=== PATIENT | male | born 1950 | race Hispanic/Latino ===

== ENCOUNTER 2017-11-02 20:40 | Emergency (ER) | payer OTHER ==
[~2017-11-02] VITALS: Ht 170.2 cm; Wt 90.7 kg
--- NOTE | 2017-11-02 21:57 | ULTRASOUND REPORT ---
EXAMINATION: US TRIPLEX LOWER EXTREMITY, LEFT CLINICAL INFORMATION: Left leg pain and swelling. History of a left leg deep venous thrombosis. COMPARISON: None TECHNIQUE: Color-flow triplex imaging with spectral analysis and compression Doppler were performed on the lower extremity. FINDINGS: There is partially occlusive thrombus extending from the mid aspect of the superficial femoral vein to the popliteal vein. Some flow is visualized within the calf veins. There is no Johnson's cyst. IMPRESSION: Positive study with partially occlusive thrombus within the mid aspect of the superficial femoral vein extending to the popliteal vein. This is of uncertain chronicity as the patient reportedly had a left leg DVT 1 year ago. No prior studies available for comparison.
--- NOTE | 2017-11-02 22:05 | ED UPPER/LOWER EXTREMITY COMPL ---
History of Present Illness General Chief Complaint: Lower Extremity Problems Stated Complaint: L LEG SWELLING HX OF CLOT Source: patient, family Exam Limitations: no limitations Vital Signs & Intake/Output Vital Signs & Intake/Output Vital Signs Date Time Temp Pulse Resp B/P B/P Pulse O2 O2 Flow FiO2 Mean Ox Delivery Rate 11/02 2105 98.3 89 18 117/67 96 Room Air Allergies Coded Allergies: No Known Allergies (11/02/17) Reconcile Medications Apixaban (Eliquis) 5 MG TABLET 1 TAB PO BID dvt take 2 tabs twice a day for 7 days, then 1 tab twice a day Triage Note: RECEIVED 67 YO MALE DX WITH L LEG DVT 2016 IN [place]. PT WAS INITIALLY ON BLOOD THINNERS BUT STOPPED AFTER HURRICAINE. PT HAD NOT BEEN ON BLOOD THINNERS X 2 MONTHS. FAMILY REPORTS WORSENINNG SWELLING TO LEFT LOWER LEG AND DISCOLORATION TO LEFT ANKLE AREA. Triage Nurses Notes Reviewed? yes Onset: Gradual Duration: week(s): Timing: recent history Severity: moderate Pain/Injury Location: Left: Leg. HPI: 67yo male with hx of previous DVT presents to ED complaining of worsening swelling and pain to left lower leg for the past several weeks. Patient has recently moved to the from [place]. He was diagnosed with a left leg DVT December 2016. Patient was formerly taking blood thinners however he discontinue this medication 2 months ago as he did not have access to the medication. Patient saw a new primary care doctor here in the for the first time and was referred here for evaluation of possible DVT. Patient reports intermittent shortness of breath, worse with exertion. Patient denies chest pain, syncope, hemoptysis, abdominal pain, fevers. (Linda Silva) Past History Travel History Traveled to [place] past 21 day No Medical History Any Pertinent Medical History? see below for history Neurological: NONE EENT: NONE Cardiovascular: NONE Respiratory: NONE Gastrointestinal: NONE Hepatic: NONE Renal: NONE Musculoskeletal: L LEG DVT Psychiatric: NONE Endocrine: NONE Blood Disorders: NONE Cancer(s): NONE Surgical History Surgical History: non-contributory Psychosocial History What is your primary language Moldovan Tobacco Use: Never used Family History Hx Contributory? No (Linda Silva) Review of Systems Review of Systems Constitutional: Reports: no symptoms. EENTM: Reports: no symptoms. Respiratory: Reports: see HPI. Cardiovascular: Reports: see HPI. Gastrointestinal/Abdominal: Reports: no symptoms. Genitourinary: Reports: no symptoms. Musculoskeletal: Reports: see HPI. Skin: Reports: no symptoms. Neurological/Psychological: Reports: no symptoms. Hematologic/Endocrine: Reports: no symptoms. Immunological: Reports: no symptoms. All Other Systems: Reviewed and Negative (Peggy JENNINGS,Linda Juarez) Physical Exam Physical Exam General Appearance: well developed/nourished, no apparent distress, alert, awake Head: atraumatic, normal appearance Eyes: Bilateral: normal appearance. Ears, Nose, Throat: hearing grossly normal Neck: normal inspection, supple, full range of motion Cardiovascular/Respiratory: normal breath sounds, normal peripheral pulses, regular rate/rhythm, no respiratory distress Peripheral Pulses: 2+ dorsalis pedis (R), 2+ dorsalis pedis (L) Back: normal inspection, normal range of motion Leg Left: normal range of motion, 2+ pitting edema, nontender Leg Right: normal range of motion, normal inspection Hip Left: normal range of motion, normal inspection Hip Right: normal range of motion, normal inspection Knee Left: normal range of motion, normal inspection Knee Right: normal range of motion, normal inspection Foot Left: normal inspection, normal range of motion Foot Right: normal inspection, normal range of motion Neurologic/Tendon: normal sensation, normal motor functions, normal tendon functions Skin: intact, normal color, warm/dry (Peggy JENNINGS,Linda Juarez) Progress Differential Diagnosis: cellulitis, CHF, DVT, dependent edema Plan of Care: Orders Procedure Date/time Status PARTIAL THROMBOPLASTIN TIME 11/02 2144 Complete PROTHROMBIN TIME 11/02 2144 Complete COMPREHENSIVE METABOLIC PANEL 11/02 2144 Complete CBC WITHOUT DIFFERENTIAL 11/02 2144 Complete Current Medications Sig/George Start time Last Medication Dose Stop Time Status Admin Apixaban 10 MG ONCE ONE 11/02 2344 UNVr (Eliquis) 11/02 2345 Laboratory Tests 11/02/17 2210: Anion Gap 11, Estimated GFR > 60, BUN/Creatinine Ratio 15.0, Glucose 95, Calcium 9.5, Total Bilirubin 0.6, AST 21, ALT 24, Alkaline Phosphatase 73, Total Protein 6.5, Albumin 4.0, Globulin 2.5, Albumin/Globulin Ratio 1.6, PT 11.7, INR 1.07, APTT 28, CBC w Diff NO MAN DIFF REQ, RBC 4.14 L, MCV 96.4 H, MCH 32.3 H, MCHC 33.6, RDW 14.2, MPV 10.2, Gran % 39.0 L, Lymphocytes % 43.4, Monocytes % 12.9 H, Eosinophils % 4.0, Basophils % 0.7, Absolute Granulocytes 2.8, Absolute Lymphocytes 3.2, Absolute Monocytes 0.9 H, Absolute Eosinophils 0.3, Absolute Basophils 0.1 Ultrasound shows DVT, unknown if this is acute or related to patient's previous DVT, no old records to compare this to. CTA rules out pulmonary embolism. Patient's labs are stable. Patient's symptoms have been present for weeks. Patient started on Eliquis here in the ED and was started on eliquis to go home with. He was given a referral to a vascular specialist. Patient also to follow-up with his primary care doctor. Patient and family agree with the plan of care. The patient was discussed with Dr. Doherty who agrees with this plan. Diagnostic Imaging: Viewed by Me: CT Scan, Ultrasound. Discussed w/RAD: CT Scan, Ultrasound. Radiology Impression: PATIENT: RIZWANA HANSON PRESENT AGE: 67 PATIENT ACCOUNT NO: [id number] : 50 LOCATION: [facility] ORDERING PHYSICIAN: Linda JENNINGS SERVICE DATE: 11/02/17 EXAM TYPE: CAT - CTA CHEST-PULMONARY EMBOLISM EXAMINATION: CT ANGIOGRAM OF THE CHEST WITH AND WITHOUT CONTRAST (CT PULMONARY ANGIOGRAM FOR PE) CLINICAL INFORMATION: CURRENT DVT WITH DYSPNEA
COMPARISON: None TECHNIQUE: Prior to contrast administration, noncontrast localization images were obtained. Subsequently, multidetector volumetric imaging was performed from the thoracic inlet to below the diaphragms following the administration of 95 mL Optiray 320 intravenous contrast. No contrast reaction reported. Sagittal, coronal, and MIP oblique sagittal reformatted images were obtained on the CT workstation, uploaded to PACS, and reviewed. Total exam dose-length product 550.44 mGy-cm. FINDINGS: QUALITY OF STUDY/CONTRAST BOLUS: Satisfactory PULMONARY ARTERIES: No central or segmental pulmonary emboli. THORACIC AORTA: No aneurysm or dissection. LUNG: No focal consolidation, nodules or masses. There is a calcified granuloma subpleural lung at the left lower lobe, image 37 (3). PLEURA: No pleural effusion or pneumothorax. MEDIASTINUM: Normal heart size. No pericardial effusion. No hilar or mediastinal lymphadenopathy. No evidence of septal bowing or right heart strain. CHEST WALL/AXILLA: No axillary or internal mammary lymphadenopathy. OSSEOUS STRUCTURES: Degenerative spondylosis spine with multilevel disc height narrowing and endplate spurring of the vertebrae. UPPER ABDOMEN: Unremarkable. No reflux of contrast into the hepatic veins to suggest elevated right heart pressures. IMPRESSION: Normal CT of chest. No evidence of pulmonary embolism. VTE: negative DICTATED BY: Antoni Voss MD DATE/TIME DICTATED:11/02/172318 COMPOSITE ENGINEER:LEAVITT DATE/TIME TRANSCRIBED:2318 CONFIDENTIAL, DO NOT COPY WITHOUT APPROPRIATE AUTHORIZATION. < Electronically signed in Other Vendor System> SIGNED BY: Antoni Voss MD [id number], PATIENT: RIZWANA HANSON PRESENT AGE : 67 PATIENT ACCOUNT NO: [id number] : 50 LOCATION: [facility] ORDERING PHYSICIAN: Linda JENNINGS SERVICE DATE: 11/02/17 EXAM TYPE: US - US-UNILATERAL VENOUS DOPPLER EXAMINATION: US TRIPLEX LOWER EXTREMITY, LEFT CLINICAL INFORMATION: Left leg pain and swelling. History of a left leg deep venous thrombosis. COMPARISON: None TECHNIQUE: Color-flow triplex imaging with spectral analysis and compression Doppler were performed on the lower extremity. FINDINGS: There is partially occlusive thrombus extending from the mid aspect of the superficial femoral vein to the popliteal vein. Some flow is visualized within the calf veins. There is no Johnson's cyst. IMPRESSION: Positive study with partially occlusive thrombus within the mid aspect of the superficial femoral vein extending to the popliteal vein. This is of uncertain chronicity as the patient reportedly had a left leg DVT 1 year ago. No prior studies available for comparison. DICTATED BY: Andrei Patel MD DATE/TIME DICTATED:11/02/172148 COMPOSITE ENGINEER:KELLEY DATE/TIME TRANSCRIBED:11/02/172148 CONFIDENTIAL, DO NOT COPY WITHOUT APPROPRIATE AUTHORIZATION. <Electronically signed in Other Vendor System> SIGNED BY: Andrei Patel MD 11/02/172156 (Peggy JENNINGS,Linda Juarez) Departure Departure Disposition: HOME OR SELF CARE Condition: Stable Clinical Impression Primary Impression: DVT (deep venous thrombosis) Qualifiers: DVT location: lower extremity Affected thrombotic vein of extremity : unspecified vein of extremity Chronicity: acute Laterality: left Qualified Code: I82.402 - Acute embolism and thrombosis of unspecified deep veins of left lower extremity Referrals: Ji Workman MD (PCP/Family) Additional Instructions: Begin new Medication (Eliquis). Take 2 tabs twice a day for 7 days. After 1 week reduced dose to 1 tab twice a day. Follow-up with Dr. Workman. Also follow up with vascular specialist. Return with worsening symptoms or concerns. Please note that there might be incidental findings in your evaluation that are unrelated to the current emergency department visit. Please notify your primary care doctor about this emergency department visit in order to obtain and review all of the testing performed so that these incidental findings can be monitored as needed. If you had an x-ray performed, please understand that some fractures may not be seen on the initial set of x-rays. If your symptoms persist you might need a repeat set of x-rays to check for such a fracture. If you had a laceration evaluated, please understand that foreign bodies such as glass or wood may not be visible to the naked eye or on plain x-rays. If the wound becomes red, swollen, increasingly more painful or if there is any drainage from the wound, please have it reevaluated by a physician for the possibility of a retained foreign body. If you're unable to follow up as outlined in the discharge instructions please return to the emergency department. Thank you for choosing the [facility] Emergency Department for your care. It was a pleasure to serve you today. Departure Forms: Customer Survey General Discharge Information Prescriptions: Current Visit Scripts Apixaban (Eliquis) 1 TAB PO BID #60 TAB take 2 tabs twice a day for 7 days, then 1 tab twice a day (Peggy JENNINGS,Linda Juarez) PA/[employer] E[employer] DEVELOPER Co-Sign Statement Statement: ED Attending supervision documentation- x I saw and evaluated the patient. I have also reviewed all the pertinent lab results and diagnostic results. I agree with the findings and the plan of care as documented in the PA's/ORACLE ETL DEVELOPER's documentation. [] I have reviewed the ED Record and agree with the PA's/ORACLE ETL DEVELOPER's documentation. [] Additions or exceptions (if any) to the PAs/ORACLE ETL DEVELOPER's note and plan are summarized below: [] (Chas MC,Regis)
[2017-11-02 22:20] LABS: ABSOLUTE BASOPHIL COUNT 0.1 /CUMM (0.0-0.2); ABSOLUTE EOSINOPHIL COUNT 0.3 /CUMM (0.0-0.7); ABSOLUTE GRANULOCYTE CT 2.8 /CUMM (1.4-6.5); ABSOLUTE LYMPH COUNT 3.2 /CUMM (1.2-3.4); ABSOLUTE MONOCYTE COUNT 0.9 /CUMM (0.10-0.60); BASOPHIL % 0.7 % (0.0-2.0); HEMATOCRIT 39.9 % (42-52); MEAN CORPUSCULAR HGB 32.3 PG (27.0-31.0); MEAN CORPUSCULAR HGB CONC 33.6 G/DL (33.0-37.0); MEAN CORPUSCULAR VOLUME 96.4 FL (80.0-94.0); MEAN PLATELET VOLUME 10.2 FL (7.4-10.4); PLATELET COUNT 210 /CUMM (130-400); RBC DISTRIBUTION WIDTH 14.2 % (11.5-14.5); RED BLOOD CELL CT 4.14 /CUMM (4.70-6.10); WHITE BLOOD CELL COUNT 7.3 /CUMM (4.8-10.8)
[2017-11-02 22:26] LABS: PT 11.7 SEC (9.4-12.5); PTT 28 SEC (25-37)
--- NOTE | 2017-11-02 23:27 | CT SCAN REPORT ---
EXAMINATION: CT ANGIOGRAM OF THE CHEST WITH AND WITHOUT CONTRAST (CT PULMONARY ANGIOGRAM FOR PE) CLINICAL INFORMATION: CURRENT DVT WITH DYSPNEA
COMPARISON: None TECHNIQUE: Prior to contrast administration, noncontrast localization images were obtained. Subsequently, multidetector volumetric imaging was performed from the thoracic inlet to below the diaphragms following the administration of 95 mL Optiray 320 intravenous contrast. No contrast reaction reported. Sagittal, coronal, and MIP oblique sagittal reformatted images were obtained on the CT workstation, uploaded to PACS, and reviewed. Total exam dose-length product 550.44 mGy-cm. FINDINGS: QUALITY OF STUDY/CONTRAST BOLUS: Satisfactory PULMONARY ARTERIES: No central or segmental pulmonary emboli. THORACIC AORTA: No aneurysm or dissection. LUNG: No focal consolidation, nodules or masses. There is a calcified granuloma subpleural lung at the left lower lobe, image 37 (3). PLEURA: No pleural effusion or pneumothorax. MEDIASTINUM: Normal heart size. No pericardial effusion. No hilar or mediastinal lymphadenopathy. No evidence of septal bowing or right heart strain. CHEST WALL/AXILLA: No axillary or internal mammary lymphadenopathy. OSSEOUS STRUCTURES: Degenerative spondylosis spine with multilevel disc height narrowing and endplate spurring of the vertebrae. UPPER ABDOMEN: Unremarkable. No reflux of contrast into the hepatic veins to suggest elevated right heart pressures. IMPRESSION: Normal CT of chest. No evidence of pulmonary embolism. VTE: negative
[2017-11-02] MEDS ORDERED: ELIQUIS5 M1 PO (23:40)
[2017-11-02 23:52] VITALS: BP 108/60
== END 2017-11-02 23:54 ==
LOC: ERH 20:40
PROVIDERS: Physician Assistant
DX: I82.412 Acute embolism and thrombosis of left femoral vein (principal)